=== PATIENT | male | born 1980 | race Caucasian/White ===

== ENCOUNTER → 2016-11-02 | Outpatient (CLI) | payer SELFPAY ==
--- NOTE | 2016-11-03 07:38 | REP ---
RIGHT HIP: Two views. HISTORY: Contusion. FINDINGS: AP and frog-leg views of the right hip demonstrate smooth rounded femoral head and intact hip joint space. No fracture or subluxation is seen. IMPRESSION: No fracture noted. Signed by Joe Grimaldo MD 11/03/2016 10:04 A
--- NOTE | 2016-11-03 07:38 | REP ---
LEFT ELBOW SERIES: Four views. HISTORY: Contusion. FINDINGS: Four views left elbow demonstrate normal bones, joints, and soft tissues. No fracture subluxation or joint effusion is seen. IMPRESSION: Negative left elbow series. Signed by Joe Grimaldo MD 11/03/2016 10:05 A
--- NOTE | 2016-11-03 07:39 | REP ---
RIGHT HUMERUS: Two views. HISTORY: Contusion. FINDINGS: AP and lateral views of the right humerus show normal bones joints and soft tissues. No fracture or subluxation is seen. IMPRESSION: Negative views of the right humerus. Signed by Joe Grimaldo MD 11/03/2016 10:05 A
--- NOTE | 2016-11-03 07:41 | REP ---
RIGHT SHOULDER SERIES: Three views. HISTORY: Contusion. FINDINGS: Three views of the right shoulder demonstrate normal alignment of the glenohumeral and acromioclavicular joints. There is some cortical irregularity of the glenoid which may reflect post-traumatic deformity or spurring. No acromion process or coracoid process fracture is seen. The body of the scapula is intact. IMPRESSION: Irregularity of the inferior and posterior aspect of the glenoid suggesting old post-traumatic deformity. Shoulder CT scanning may be helpful for further evaluation of this. No definite acute fracture seen. Signed by Joe Grimaldo MD 11/03/2016 10:05 A
--- NOTE | 2016-11-03 07:41 | REP ---
CERVICAL SPINE SERIES: Seven views. HISTORY: Contusion. FINDINGS: Lateral views done in flexion/extension and neutral position show preserved vertebral body heights and normal alignment. No subluxation or instability is seen. No fracture is seen. There is fragmented spurring at the anterior superior endplate of the C5 vertebral body. Prevertebral soft tissues are not widened. Facets are normally aligned. Oblique images demonstrate intact neural foramina bilaterally at each cervical level. AP and open mouth odontoid views are unremarkable. IMPRESSION: Minimal spurring at the anterior superior endplate of C5. No traumatic abnormality noted. CT scanning is more sensitive for fracture than plain radiography. Signed by Joe Grimaldo MD 11/03/2016 10:05 A
== END | disposition home or self-care (01) ==
LOC: M WUC 18:39
PROVIDERS: ATTEND Physician Assistant
DX: S10.83XA Contusion of other specified part of neck, initial encounter (principal); S40.021A Contusion of right upper arm, initial encounter; S50.02XA Contusion of left elbow, initial encounter; S70.01XA Contusion of right hip, initial encounter; M47.812 Spondylosis without myelopathy or radiculopathy, cervical region; X58.XXXA Exposure to other specified factors, initial encounter; Y92.9 Unspecified place or not applicable; Y99.9 Unspecified external cause status; Y93.9 Activity, unspecified

== ENCOUNTER 2020-09-10 16:02 | Emergency (ER) | payer MEDICAID, OTHER, SELFPAY ==
[~2020-09-10] VITALS: Ht 180.3 cm; Wt 104.4 kg
[2020-09-10 16:33] LABS: BASO % 0.4 % (0.0-1.0); EOS # 0.2 10^3/uL (0.0-0.5); EOS % 2.2 % (0.0-3.0); HEMATOCRIT 42.3 % (42.0-52.0); HEMOGLOBIN 14.1 g/dl (13.5-17.5); LYMPH # 2.5 10^3/uL (1.5-5.0); LYMPH % 34.9 % (24.0-44.0); MEAN CORPUSCULAR HEMOGLOBIN 30.5 pg (27.0-33.0); MEAN CORPUSCULAR HGB CONC 33.3 g/dl (32.0-36.5); MEAN CORPUSCULAR VOLUME 91.6 fl (80.0-96.0); MONO # 0.5 10^3/uL (0.0-0.8); MONO % 6.6 % (0.0-5.0); NEUTROPHILS % 55.6 % (36.0-66.0); PLATELET COUNT, AUTOMATED 303 10^3/uL (150-450); RED BLOOD COUNT 4.62 10^6/uL (4.30-6.10); WHITE BLOOD COUNT 7.3 10^3/uL (4.0-10.0)
[2020-09-10] MEDS ORDERED: ASPIRIN 81 MG CHEW TABLET PO ONE (16:45)
--- NOTE | 2020-09-10 17:06 | REP ---
INDICATION: CHEST PAIN. COMPARISON: None. TECHNIQUE: SINGLE PORTABLE AP VIEW OF THE CHEST WAS PERFORMED. FINDINGS: THERE IS NO ACUTE INFILTRATE OR PULMONARY EDEMA. LUNGS ARE CLEAR. HEART IS NOT SIGNIFICANTLY ENLARGED. MEDIASTINAL SILHOUETTE IS UNREMARKABLE. THE VISUALIZED OSSEOUS STRUCTURES ARE INTACT. IMPRESSION: NO ACUTE PULMONARY DISEASE. <Electronically signed by Venkata Kaiser > 09/10/20
[2020-09-10 17:10] LABS: ALBUMIN 4.5 GM/DL (3.2-5.2); ALT/SGPT 28 U/L (12-78); BILIRUBIN,DIRECT < 0.1 MG/DL (0.0-0.2); BILIRUBIN,TOTAL 0.3 MG/DL (0.2-1.0); BLOOD UREA NITROGEN 21 MG/DL (7-18); CALCIUM LEVEL 9.1 MG/DL (8.5-10.1); CARBON DIOXIDE LEVEL 26 MEQ/L (21-32); CHLORIDE LEVEL 107 MEQ/L (98-107); CK-MB VALUE MASS < 1.0 NG/ML (<3.6); CPK CREATINE PHOSPHOKINASE 190 U/L (39-308); CREATININE FOR GFR 1.26 MG/DL (0.70-1.30); GLOMERULAR FILTRATION RATE > 60.0 (>60); GLUCOSE, FASTING 96 MG/DL (70-100); MB/CK RELATIVE INDEX 0.53 (< OR =4); POTASSIUM SERUM 4.1 MEQ/L (3.5-5.1); SODIUM LEVEL 139 MEQ/L (136-145); TOTAL PROTEIN 7.9 GM/DL (6.4-8.2); TROPONIN I < 0.02 NG/ML (< 0.10)
[2020-09-10 17:31] VITALS: BP 138/82
--- NOTE | 2020-09-10 17:56 | ECGEPIP ---
[facility] - ED Test Date: 2020-09-10 Pat Name: CAILIN STEVENSON Department: Room: - Gender: Male [employer]st: yessi : 1980 Requested By: Sun Choi Order Number: [id number] Reading MD: Sun Choi Measurements Intervals [place] Rate: 79 P: 47 IN: 170 QRS: 67 QRSD: 131 T: 44 QT: 402 QTc: 461 Interpretive Statements SINUS RHYTHM RIGHT BUNDLE BRANCH BLOCK No prior Electronically Signed on 09-10-2020 17:55:50 EST by Sun Choi
== END 2020-09-10 17:39 | disposition home or self-care (01) ==
LOC: M ED 16:02
DX: R07.89 Other chest pain (principal); R00.2 Palpitations; F17.210 Nicotine dependence, cigarettes, uncomplicated

== ENCOUNTER → 2023-07-03 | Outpatient (CLI) | payer OTHER | LOC: M RAD 10:38 | PROVIDERS: ATTEND Physician Assistant | DX: M79.89 Other specified soft tissue disorders (principal) ==

== ENCOUNTER 2023-09-11 13:48 | Emergency (ER) | payer OTHER ==
[~2023-09-11] VITALS: Ht 182.9 cm; Wt 110.1 kg
[2023-09-11 13:49] VITALS: TEMP 98.6
[2023-09-11 14:21] LABS: BASO % 0.6 % (0.0-1.0); EOS # 0.3 10^3/uL (0.0-0.5); EOS % 4.3 % (0.0-3.0); HEMATOCRIT 41.2 % (42.0-52.0); HEMOGLOBIN 13.9 g/dl (13.5-17.5); LYMPH # 2.1 10^3/uL (1.5-5.0); LYMPH % 31.9 % (24.0-44.0); MEAN CORPUSCULAR HEMOGLOBIN 31.6 pg (27.0-33.0); MEAN CORPUSCULAR HGB CONC 33.7 g/dl (32.0-36.5); MEAN CORPUSCULAR VOLUME 93.6 fl (80.0-96.0); MONO # 0.5 10^3/uL (0.0-0.8); NEUTROPHILS # 3.6 10^3/uL (1.5-8.5); NEUTROPHILS % 55.9 % (36.0-66.0); PLATELET COUNT, AUTOMATED 283 10^3/uL (150-450); WHITE BLOOD COUNT 6.5 10^3/uL (4.0-10.0)
[2023-09-11 14:37] LABS: INR 0.98; PROTHROMBIN TIME 12.7 SECONDS (12.5-14.5)
[2023-09-11 14:38] LABS: CK-MB VALUE MASS 1.1 NG/ML (<3.6)
[2023-09-11 14:40] LABS: MB/CK RELATIVE INDEX 0.8 (< OR =4)
[2023-09-11 14:41] LABS: ALBUMIN 4.1 G/DL (3.2-5.2); BILIRUBIN,DIRECT 0.1 MG/DL (<0.4); BILIRUBIN,TOTAL 0.3 MG/DL (0.3-1.2); CALCIUM LEVEL 9.6 MG/DL (8.5-10.1); CREATININE FOR GFR 1.4 MG/DL (0.70-1.30); GLOMERULAR FILTRATION RATE 58.6 (>60); POTASSIUM SERUM 4.7 MMOL/L (3.5-5.1); TOTAL PROTEIN 6.9 G/DL (5.7-8.2)
[2023-09-11 14:42] LABS: THYROID STIMULATING HORMONE 1.148 uIU/ML (0.55-4.78)
[2023-09-11 14:43] LABS: FREE T4 1.18 NG/DL (0.89-1.76)
[2023-09-11 16:30] LABS: D-DIMER QUANT < 0.27 ug/mL (<0.5)
[2023-09-11 16:45] VITALS: BP 145/91
[2023-09-11 16:48] VITALS: O2SAT 98
[2023-09-11] MEDS ORDERED: OMEP-173 PO (16:59)
== END 2023-09-11 17:29 | disposition home or self-care (01) ==
LOC: M ED 13:48
DX: R07.9 Chest pain, unspecified (principal); F17.200 Nicotine dependence, unspecified, uncomplicated; F12.10 Cannabis abuse, uncomplicated; Z79.83 Long term (current) use of bisphosphonates